=== PATIENT | female | born 1995 | race Two or more races ===

== ENCOUNTER 2021-03-09 04:08 | Emergency (ER) | payer OTHER ==
[~2021-03-09] VITALS: Ht 160 cm; Wt 82.6 kg
[2021-03-09] MEDS ORDERED: DOLOGEN CAPLET1 EACH PO (06:16)
[2021-03-09] MEDS ORDERED: MEDROLPACK PO (06:16)
[2021-03-09] MEDS ORDERED: TUSNEL LIQUID178 ML PO (06:16)
[2021-03-09] MEDS ORDERED: ZITHROMAX500 MG PO (06:16)
== END 2021-03-09 06:36 | disposition home or self-care (01) ==
LOC: ER 04:08
DX: U07.1 COVID-19 (principal); B34.9 Viral infection, unspecified